=== PATIENT | female | born 1965 | race African-American/Black ===

== ENCOUNTER 2017-06-30 18:47 | Emergency (ER) | payer OTHER ==
[2017-06-30] MEDS: FLUCONAZOLE 100 MG TABLET. PO (19:30)
[2017-06-30] MEDS: NAPROXEN 500 MG TABLET PO (19:36)
[2017-06-30] MEDS: CYCLOBENZAPRINE 10 MG TABLET. PO (21:24)
== END 2017-06-30 21:20 | disposition home or self-care (01) ==
LOC: ER 18:47
DX: S20.212A Contusion of left front wall of thorax, initial encounter (principal); S90.02XA Contusion of left ankle, initial encounter; S70.02XA Contusion of left hip, initial encounter; S50.12XA Contusion of left forearm, initial encounter; E78.00 Pure hypercholesterolemia, unspecified; I10 Essential (primary) hypertension; Z90.710 Acquired absence of both cervix and uterus; Z88.5 Allergy status to narcotic agent; Z91.040 Latex allergy status; V43.52XA Car driver injured in collision with other type car in traffic accident, initial encounter; Y93.I9 Activity, other involving external motion; Y92.410 Unspecified street and highway as the place of occurrence of the external cause; Y99.8 Other external cause status
CPT/HCPCS: 71101; 73502; 73590; 73610; 93005; 99284-25; 99285-25